=== PATIENT | female | born 1950 | race Caucasian/White ===

== ENCOUNTER 2016-11-15 03:20 | Emergency (ER) | payer BC ==
[~2016-11-15] VITALS: Ht 157.5 cm; Wt 85.7 kg
--- NOTE | ~2016-11-15 | CT2 ---
[facility] A Service of [facility] RADIOLOGY TEXT RESULTS PATIENT: AISHA HERRERA LOCATION: SED : 54 UNIT #: [id number] AGE: [address]: Sam Hernandez MD SEX: F ORDER DR: [id number] [address] [address] [id number] MR#: [id number] Acc #: [id number] NAME: AISHA HERRERA : 1950 SEX: F STUDY DATE/TIME: 11/15/2016 5:40 UNIT: SED ROOM: STUDY DESCRIPTION: CT Abd and Pelv W Cont Attending Physician: Sam Hernandez M.D. Ordering Physician: Sam Hernandez M.D. Primary Care Physician: Wendy Boone M.D. MEDICAL IMAGING REPORT This report is preliminary unless electronic signature is present. EXAM CT abdomen and pelvis with contrast INDICATION Generalized abdominal pain tonight. PROCEDURE Contrast-enhanced CT of the abdomen and pelvis. This CT examination was performed with one or more of the following radiation dose reduction techniques: automatic exposure control, adjustment of mA and/or kV according to patient size, and iterative reconstruction. COMPARISON 03/11/2011. FINDINGS ABDOMEN WITH CONTRAST: The included lung bases are clear. Liver, spleen, kidneys, adrenal glands, pancreas show no acute abnormality. Previous cholecystectomy. Lap-Band in place. Bowel loops nondilated. Appendix is not clearly seen but there is no pericecal inflammation. PELVIS WITH CONTRAST: Previous hysterectomy. No pelvic mass or fluid. No aggressive appearing bone lesion. IMPRESSION No acute findings in the abdomen or pelvis. Dictated by... Ge Webb M.D. [facility] A Service of [facility] RADIOLOGY TEXT RESULTS PATIENT: AISHA HERRERA LOCATION: SED : 54 UNIT #: [id number] AGE: [address]: Sam Hernandez MD SEX: F ORDER DR: THIS IS AN ELECTRONICALLY VERIFIED REPORT Ge Webb M.D. at 11/19/2016 8:57 AM RADHA/bertin TD: 11/15/2016 10:49 JOB #: [id number] MEDICAL IMAGING REPORT Page 1 of 1
--- NOTE | ~2016-11-15 | EKG ---
PATIENT: AISHA HERRERA UNIT #: [id number] Ventricular Rate: 109 BPM Atrial Rate: 109 BPM P-R Interval: 156 ms QRS Duration: 74 ms Q-T Interval: 352 ms QTC Calculation(Bezet): 474 ms P Haiku: 41 degrees Calculated R Haiku: -48 degrees Calculated T Haiku: 36 degrees Diagnosis Line: Sinus tachycardia Diagnosis Line: Left anterior fascicular block Diagnosis Line: Cannot rule out Anterior infarct , age Diagnosis Line: undetermined Diagnosis Line: Abnormal ECG Diagnosis Line: When compared with ECG of 14-APR-2010 22:12, Diagnosis Line: Minimal criteria for Anterior infarct are now Diagnosis Line: Present Diagnosis Line: Confirmed by QUINTEN SAHA MD ([id number]) on Diagnosis Line: 11/15/2016 10:55:16 AM INTERPRETING MD: MARIA A LEVY
[~2016-11-15 03:20] MED LIST: AMLODIPINE BESYL5 MG PO; ATIVAN2 MG PO; BENICAR HCT 20-1 TA1 PO; BENICAR PO; BENZONATATE PO; CAPOZIDE PO; CYMBALTA30 M1 PO; FLEXERIL10 MG PO; GLUCOTROL XL PO; HCTZ PO; IBUPROFEN PO; KCL PO; LEVAQUIN750 MG PO; LORAZEPAM1 MG PO; LORTAB 5/500 TA1 TA1 PO; LOSARTAN POTAS100 MG PO; PHENERGAN25 MG PO; PRED-PAK PO; PROAIR HFA8.5 GM INH; VICODIN PO
[2016-11-15 04:20] LABS: BASOPHIL# 0.1 X10e3 (0-0.3); BASOPHIL% 0.6 % (0-2.5); EOSINOPHIL# 0.3 X10e3 (0-0.7); EOSINOPHIL% 1.7 % (0.0-7.0); HEMATOCRIT 45.4 % (35.0-45.0); HEMOGLOBIN 15.5 gm/dL (12.0-16.0); LYMPHOCYTE# 1.1 X10e3 (1.0-3.5); LYMPHOCYTE% 6.7 % (17.0-45.0); MEAN CELL VOLUME 90.6 FL (83-96); MEAN CORPUSCULAR HEMOGLOBIN 30.9 PG (28-34); MEAN CORPUSCULAR HGB CONC 34.2 g/dL (30-36); MONOCYTE# 0.7 X10e3 (0-1.0); NEUTROPHIL# 14.5 X10e3 (1.5-7.1); PLATELET COUNT 335 X10e3 (140-420); RED BLOOD COUNT 5.01 X10e (3.90-5.30); RED CELL DISTRIBUTION WIDTH 14.3 % (11.0-15.5); WHITE BLOOD COUNT 16.7 X10e3 (4.0-10.5)
[2016-11-15 04:21] LABS: DIFF IND NO
[2016-11-15 04:38] LABS: POC - CKMB 3.7 ng/mL (0.0-7.9); POC - TROPONIN <0.05 ng/mL (<=0.05)
[2016-11-15 04:38] LABS: ALBUMIN SERUM 4.5 g/dL (3.5-5.0); BILIRUBIN,TOTAL 0.7 mg/dL (0.2-2.0); BUN/CREATININE RATIO 31.11; CREATININE SERUM 0.9 mg/dL (0.6-1.4); GLOM FILT RATE Estimated 67.6 mL/min (>60); POTASSIUM 4.2 mmol/L (3.5-5.1); PROTEIN TOTAL SERUM 7.8 g/dL (6.0-8.3)
[2016-11-15 06:09] LABS: URINE SOURCE CLEAN CATCH
[2016-11-15 06:12] LABS: URINE APPEARANCE CLEAR; URINE BILIRUBIN NEG (NEG); URINE BLOOD NEG (NEG); URINE COLOR YELLOW; URINE GLUCOSE 50 MG/DL (NORM); URINE KETONE NEG (NEG); URINE LEUKOCYTE ESTERASE NEG (NEG); URINE NITRATE NEG (NEG); URINE PH 5.5 (5-8); URINE PROTEIN NEG (NEG); URINE UROBILINOGEN 0.2 MG/DL (NORM)
[2016-11-15 06:14] LABS: MICRO INDICATED? NO
== END 2016-11-15 06:52 | disposition home or self-care (01) ==
LOC: SED 03:20
DX: K52.9 Noninfective gastroenteritis and colitis, unspecified (principal); I12.9 Hypertensive chronic kidney disease with stage 1 through stage 4 chronic kidney disease, or unspecified chronic kidney disease; E11.22 Type 2 diabetes mellitus with diabetic chronic kidney disease; N18.9 Chronic kidney disease, unspecified; Z87.442 Personal history of urinary calculi; Z90.49 Acquired absence of other specified parts of digestive tract; Z98.84 Bariatric surgery status; Z90.710 Acquired absence of both cervix and uterus; Z98.890 Other specified postprocedural states; Z88.8 Allergy status to other drugs, medicaments and biological substances; Z88.1 Allergy status to other antibiotic agents
CPT/HCPCS: 36415; 74177; 80053; 81003; 82553; 83690; 83874; 84484; 85025; 93005; 96361; 96374; 96375; 99284; J0780; J1200; J2270; J2405; Q9967